=== PATIENT | male | born 1965 | race Two or more races ===

== ENCOUNTER 2017-03-23 21:16 | Emergency (ER) | payer SELFPAY ==
[~2017-03-23] VITALS: Ht 165.1 cm; Wt 81.6 kg
--- NOTE | 2017-03-23 22:55 | NUR ---
PT BIBSELF AMBULATORY TO ER BED 4 PT C/O "BODYACHES THAT STARTED WHILE AT WORK" PT AOX3 RR EVEN AND UNLABORED. NO SOB NOTED. NAD NOTED. NO NVD AT THIS TIME. PT GOWNED AND PLACED ON MONITOR WAITING FOR MD ANGULO.
--- NOTE | 2017-03-23 23:26 | NUR ---
CORNELIUS LOPEZ AT BEDSIDE FOR EVAL.
[2017-03-24] MEDS ORDERED: IV NS 0.9% 1,000 ML BAG IV ONE
[2017-03-24] MEDS ORDERED: MORPHINE SULFATE INJ 2 MG/ML DISP.SYRIN IV ONE
[2017-03-24] MEDS ORDERED: ONDANSETRON HCL/PF 4 MG/2 ML VIAL IVP ONE
--- NOTE | 2017-03-24 00:04 | NUR ---
PT TO CT.
--- NOTE | 2017-03-24 00:09 | NUR ---
PT RETURNED FROM CT.
[2017-03-24] MEDS ORDERED: ONDANSETRON HCL/PF 4 MG/2 ML VIAL ONE (00:10)
[2017-03-24] MEDS ORDERED: MORPHINE SULFATE INJ 4 MG/ML DISP.SYRIN ONE (00:11)
[2017-03-24 00:21] LABS: BASOPHILS % (AUTO) 0.1 % (0.0-2.0); EOSINOPHILS % (AUTO) 0.1 % (0.0-6.0); HEMATOCRIT 47 % (39-51); HEMOGLOBIN 15.5 g/dL (13.5-17.5); LYMPHOCYTES # (AUTO) 0.7 /CMM (0.8-4.8); LYMPHOCYTES % (AUTO) 11.8 % (20.0-44.0); MEAN CORPUSCULAR HEMOGLOBIN 25 PG (26.0-33.0); MEAN CORPUSCULAR HGB CONC 33 g/dl (31.0-36.0); MEAN CORPUSCULAR VOLUME 75 fL (80-96); MONOCYTES # (AUTO) 0.4 /CMM (0.1-1.30); MONOCYTES % (AUTO) 6.8 % (2.0-12.0); NEUTROPHILS # (AUTO) 4.9 /CMM (1.8-8.9); NEUTROPHILS % (AUTO) 81.2 % (43.0-81.0); PLATELET COUNT (AUTO) 161 /CMM (150-450); RDW COEFFICIENT OF VARIATION 14.6 (11.5-15.0)
[2017-03-24 00:30] LABS: CALCIUM, SERUM 8.7 mg/dL (8.5-10.1); CREATININE 0.7 mg/dL (0.6-1.3)
[2017-03-24 00:36] LABS: INR 1.06 (0.87-1.13)
--- NOTE | 2017-03-24 01:54 | NUR ---
PT WITH STEADY GAIT. [employer] DEGRASI AWARE
--- NOTE | 2017-03-24 02:00 | NUR ---
IV removed. Catheter intact and site benign. Pressure and 4x4 applied to site. No bleeding noted. Patient discharged to home in stable condition. Written and verbal after care instructions given. Patient verbalizes understanding of instruction. ambulatory with a steady gait. instructed pt not to drive. pt verbalize understanding. pt accompanied by
[2017-03-24 02:01] VITALS: BP 116/68
== END 2017-03-24 02:01 | disposition home or self-care (01) ==
LOC: ER 21:26
DX: R51 Headache (principal); M54.2 Cervicalgia; R11.0 Nausea
CPT/HCPCS: 36415; 70450; 80048; 85025; 85730; 96361; 96374; 96375; 99285; A4606; J2270; J2405; J7030; Z7610